=== PATIENT | female | born 1985 | race Caucasian/White ===

== ENCOUNTER 2021-01-26 17:32 | Emergency (ER) | payer OTHER ==
[~2021-01-26] VITALS: Ht 165.1 cm; Wt 57.6 kg
[2021-01-26 18:13] VITALS: BP 104/69
[2021-01-26] MEDS ORDERED: LIDOCAINE HCL/PF 1% 30 ML SDV ONE (18:54)
[2021-01-26] MEDS: LIDOCAINE 1%-EPI 1:100,000 50 ML VIAL IJ ONE (19:14)
[2021-01-26] MEDS ORDERED: TDAP [DIPH/PERTUSSIS/TET] 0.5 ML VIAL IM ONE (19:27)
[2021-01-26] MEDS: TDAP [DIPH/PERTUSSIS/TET] 0.5 ML VIAL IM ONE (19:30)
--- NOTE | 2021-01-26 19:34 | NUR ---
emt at bedside for wound care
--- NOTE | 2021-01-26 19:35 | NUR ---
Patient discharged to home in stable condition. Written and verbal after care instructions given. Patient verbalizes understanding of instruction. Pt ambulatory with a steady gait
== END 2021-01-26 19:35 | disposition home or self-care (01) ==
LOC: ER 17:41
DX: S91.312A Laceration without foreign body, left foot, initial encounter (principal); Z88.2 Allergy status to sulfonamides; Z88.1 Allergy status to other antibiotic agents; W22.8XXA Striking against or struck by other objects, initial encounter; Y93.89 Activity, other specified; Y92.89 Other specified places as the place of occurrence of the external cause; Y99.8 Other external cause status
CPT/HCPCS: 12002; 90471; 90715; 99283; J3490 ×2